=== PATIENT | female | born 1995 | race Caucasian/White ===

== ENCOUNTER 2019-06-03 13:56 | Emergency (ER) | payer OTHER ==
[2019-06-03 14:39] VITALS: BP 132/76
--- NOTE | 2019-06-03 15:09 | UC ---
Respiratory Complaint HPI - HPI Summary HPI Summary: 24-year-old female presenting with a dry cough, "lungs feeling heavy," sore throat, and fatigue "for a few weeks now." Notes wheezing at night. Denies difficulty breathing. Denies chest pain. Denies nausea and vomiting. Denies fever and chills. Does note body aches intermittently. Patient states she was seen by her PCP last week and given Augmentin for possible sinus infection. Patient denies nasal congestion and does not feel that the antibiotic is doing much for her. Denies h/o asthma. Smokes marijuana 1-2 times daily but has had to stop for the last week d/t coughing. Notes having mono back in Feb 2019. Patient adds that she is getting her tonsils removed on Thursday next week. - History of Current Complaint Chief Complaint: UCRespiratory Stated Complaint: COUGH,SORE THROAT,CHEST CONGESTION Hx Obtained From: Patient Hx Last Menstrual Period: last month Pain Intensity: 10 - Allergies/Home Medications Allergies/Adverse Reactions: Allergies Allergy/AdvReac Type Severity Reaction Status Date / Time No Known Allergies Allergy Verified 06/03/19 14:13 Home Medications: Home Medications Albuterol HFA INHALER* [Ventolin HFA Inhaler*] 1 - 2 puff INH Q4H PRN #1 mdi [Rx] Amoxicillin PO (*) [Amoxicillin 875 MG (*)] 1 tab PO BID 06/03/19 [History Confirmed 06/03/19] Benzonatate CAP* [Tessalon 100 MG CAP*] 100 mg PO TID PRN #21 cap 06/03/19 [Rx] Dextroamphetamine/Amphetamine [Adderall 20 mg Tablet] 1 tab PO DAILY 06/03/19 [ History Confirmed 06/03/19] Fluoxetine HCl [Prozac] 1 tab PO DAILY 06/03/19 [History Confirmed 06/03/19] PMH/Surg Hx/FS Hx/Imm Hx - Surgical History Surgical History: Yes Surgery Procedure, Year, and Place: shoulder left. left elbow. left knee - Social History Alcohol Use: Rare Substance Use Type: Marijuana Smoking Status (MU): Never Smoked Tobacco Review of Systems All Other Systems Reviewed And Are Negative: Yes Constitutional: Positive: Fatigue ENT: Positive: Sore Throat Respiratory: Positive: Cough - nonproductive, Other - wheezing at night. Negative: Shortness Of Breath Cardiovascular: Positive: Negative Gastrointestinal: Positive: Negative Musculoskeletal: Positive: Myalgia Neurological/Mental Status: Positive: Negative Physical Exam - Summary Physical Exam Summary: Vital Signs Reviewed: Yes A+Ox3, no distress, well-appearing Eyes: Conjunctiva Clear ENT: Hearing grossly normal, TM x 2 clear, moist, uvula midline, no exudate, no erythema, +tonsillar swelling Neck: Positive: Supple, no lymphadenopathy Respiratory: Positive: No respiratory distress, No accessory muscle use + CTA throughout no w/r Cardiovascular: RRR nl s1, s2 no m/r Musculoskeletal Exam: GARZA x 4 without difficulty Neurological: Positive: Alert Psychological: Positive: age appropriate behavior Skin: Positive: no rash, no ecchymosis Vital Signs: Initial Vital Signs Temp 98.6 F 06/03/19 14:07 Pulse 97 06/03/19 14:07 Resp 18 06/03/19 14:07 BP 132/76 06/03/19 14:07 Pulse Ox 98 06/03/19 14:07 Lab Results 06/03/19 06/03/19 Range/Units 15:00 15:02 Influenza A (Rapid) Negative (Negative) Influenza B (Rapid) Negative (Negative) Group A Strep Rapid Negative (Negative) Respiratory Course/Dx - Course Course Of Treatment: Negative rapid strep and flu. CXR normal. I discussed likely viral bronchitis with patient. I provided patient with albuterol inhaler and tessalon perles for sob/wheezing and cough. Patient declined treatment with steroids at this time. I Instructed to continue with symptomatic treatment and to follow up with pcp if symptoms worsen or do not improve within 1-2 weeks. Patient voiced understanding and agreed with treatment plan. - Differential Dx/Diagnosis Provider Diagnosis: Acute bronchitis with bronchospasm Discharge ED - Sign-Out/Discharge Documenting (check all that apply): Patient Departure All imaging exams completed and their final reports reviewed: Yes - Discharge Plan Condition: Stable Disposition: HOME Prescriptions: Albuterol HFA INHALER* [Ventolin HFA Inhaler*] 1 - 2 puff INH Q4H PRN #1 mdi PRN Reason: Sob/Wheezing Benzonatate CAP* [Tessalon 100 MG CAP*] 100 mg PO TID PRN #21 cap PRN Reason: Cough Patient Education Materials: Acute Bronchitis (ED), Bronchospasm (ED) Referrals: Equinozzi II MD,Sin [Primary Care Provider] - If Needed Additional Instructions: Your rapid flu and strep tests were negative today. Your chest xray was normal. Use the inhaler and tessalon perles as directed. An over the counter decongestant, such as mucinex or sudafed, may help reduce congestion. Follow up with your primary care provider if symptoms have not improved within 1 -2 weeks. - Billing Disposition and Condition Condition: STABLE Disposition: Home - Attestation Statements Provider Attestation: This patient was not seen by me. I was available for consult. Chart reviewed. CHRISTOPHER
[2019-06-03 15:14] LABS: Influenza A Molecular Negative (Negative); Influenza B Molecular Negative (Negative)
== END 2019-06-03 16:00 | disposition home or self-care (01) ==
LOC: UCEAST 13:56
DX: J20.9 Acute bronchitis, unspecified (principal); J02.9 Acute pharyngitis, unspecified
CPT/HCPCS: 71046; 87651; 99202; G0463